=== PATIENT | male | born 1970 | race Caucasian/White ===

== ENCOUNTER → 2017-02-21 | Outpatient (CLI) | payer OTHER | END | disposition home or self-care (01) | LOC: RAD 10:40 | PROVIDERS: ATTEND Family Medicine | DX: N32.9 Bladder disorder, unspecified (principal); N43.2 Other hydrocele; N30.91 Cystitis, unspecified with hematuria; M47.896 Other spondylosis, lumbar region | CPT/HCPCS: 36415; 74177; 82565 ==

== ENCOUNTER → 2017-11-27 | Outpatient (CLI) | payer OTHER | LOC: RAD 15:19 | PROVIDERS: ATTEND Family Medicine | DX: I10 Essential (primary) hypertension (principal) | CPT/HCPCS: 71046 ==